=== PATIENT | female | born 1940 | race Caucasian/White ===

== ENCOUNTER 2021-12-12 09:11 | Day surgery (SDC) | payer MEDICARE, SELFPAY ==
[2021-12-07 13:42] VITALS: BMI 35.5
--- NOTE | 2021-12-09 08:45 | MHC.SHP ---
Pre-Procedural Eval Section A Date of Service: 12/09/21 The patient is an INPATIENT: No Changes since office visit: No Cold of Flu in the past 2 weeks, No New Medical Problems, No Changes in Medication and No Patient answered all questions The History & Physical has been completed within 30 days and I have reviewed it.: Yes Section B Chief Complaint: cataract left eye,open angle glaucoma Allergies: Allergies Allergy/AdvReac Type Severity Reaction Status Date / Time amlodipine [From [facility]] Allergy Tongue Verified 12/07/21 13:40 swelling lisinopril AdvReac Cough Verified 12/07/21 13:40 Plan Diagnosis/Plan: Unchanged I have reviewed the history and physical and performed a pertinent physical examination on my patient. No changes have occurred unless specified.
--- NOTE | 2021-12-09 09:47 | HO.ANESPROP2 ---
Documented by User: Fay Carlson NP 12/09/21 09:47 HPI - Anesthesia Eval Consult details Narrative: 81yo F for Left Cataract Extraction IOL Insertion and Left Traveculectomy PCP cleared No previous cataract on record [facility] Past Medical History Medical History Arthritis CAD (coronary artery disease) CHF (congestive heart failure) COPD (chronic obstructive pulmonary disease) GERD (gastroesophageal reflux disease) Glaucoma Hard of hearing HTN (hypertension) Hx of myocardial infarction Nocturnal hypoxia On beta jhony at home Osteopenia Overactive bladder Post-nasal drip Prediabetes Pulmonary nodules Surgical History Surgical History History of colon resection History of total right knee replacement Hx of cardiac catheterization Hx of colonoscopy Hx of hysterectomy Hx of right breast biopsy Hx of varicose vein ligation Social History Social History Household Members Other:: 2 Adult Sons Are you a primary careers counsellor to a significant other at home: No Do you presently have visiting nurse or other home services: No Patient Tobacco Use Status: Former Tobacco user Quit Date: ~ 40 yrs ago Tobacco use type: Cigarette Use of substances other than those prescribed or required for medical reasons: No Have you been hit, kicked, punched, or otherwise hurt by someone within the past year? If so, by whom?: No Are you DNR?: No Advance Directives: No Advance Directives Information Provided: No Advance Directives on File: No Recently lost weight without trying: No Eating poorly because of decreased appetite: No Nutrition Risks: No Nutritional Risk Meds Allergies Allergy/AdvReac Type Severity Reaction Status Date / Time amlodipine [From [facility]] Allergy Tongue Verified 12/07/21 13:40 swelling lisinopril AdvReac Cough Verified 12/07/21 13:40 Home Medications Medication Instructions Recorded Confirmed Last Taken Type aspirin 81 mg tablet,delayed 81 mg PO DAILY 12/07/21 12/07/21 12/12/21 History release atorvastatin 80 mg tablet 1 tab PO DAILY 12/07/21 12/07/21 12/12/21 History furosemide 40 mg tablet 40 mg PO DAILY 12/07/21 12/07/21 Unknown History isosorbide mononitrate 60 mg 1 tab PO DAILY 12/07/21 12/07/21 12/12/21 History tablet,extended release 24 hr latanoprost 0.005 % eye drops drp OPHTHALMIC (EYE) 12/07/21 Unknown History metoprolol tartrate 50 mg tablet 1 tab PO BID 12/07/21 12/07/21 12/12/21 History olmesartan 20 mg tablet 1 tab PO DAILY 12/07/21 12/07/21 12/12/21 History tiotropium 2.5 mcg-olodaterol 2.5 INHALATION DAILY 12/07/21 12/07/21 12/12/21 History mcg/actuation mist for inhalation (Stiolto Respimat) Exam Exam Date and Time: December 09, 2021 0947 Height,Weight and Vital Signs: Height 4 ft 11 in Weight 79.832 kg Assessment and Plan Assessment Anesthesia Assessment: Chart Reviewed Documented by User: Stephanie Dexter MD 12/12/21 10:51 [facility] Past Medical History Medical History Arthritis CAD (coronary artery disease) CHF (congestive heart failure) COPD (chronic obstructive pulmonary disease) GERD (gastroesophageal reflux disease) Glaucoma Hard of hearing HTN (hypertension) Hx of myocardial infarction Nocturnal hypoxia On beta jhony at home Osteopenia Overactive bladder Post-nasal drip Prediabetes Pulmonary nodules Surgical History Surgical History History of colon resection History of total right knee replacement Hx of cardiac catheterization Hx of colonoscopy Hx of hysterectomy Hx of right breast biopsy Hx of varicose vein ligation History of Problems with Anesthesia: No Social History Social History Household Members Other:: 2 Adult Sons Are you a primary careers counsellor to a significant other at home: No Do you presently have visiting nurse or other home services: No Patient Tobacco Use Status: Former Tobacco user Quit Date: ~ 40 yrs ago Tobacco use type: Cigarette Use of substances other than those prescribed or required for medical reasons: No Have you been hit, kicked, punched, or otherwise hurt by someone within the past year? If so, by whom?: No Are you DNR?: No Advance Directives: No Advance Directives Information Provided: No Advance Directives on File: No Recently lost weight without trying: No Eating poorly because of decreased appetite: No Nutrition Risks: No Nutritional Risk Meds Allergies Allergy/AdvReac Type Severity Reaction Status Date / Time amlodipine [From [facility]] Allergy Tongue Verified 12/07/21 13:40 swelling lisinopril AdvReac Cough Verified 12/07/21 13:40 Home Medications Medication Instructions Recorded Confirmed Last Taken Type aspirin 81 mg tablet,delayed 81 mg PO DAILY 12/07/21 12/07/21 12/12/21 History release atorvastatin 80 mg tablet 1 tab PO DAILY 12/07/21 12/07/21 12/12/21 History furosemide 40 mg tablet 40 mg PO DAILY 12/07/21 12/07/21 Unknown History isosorbide mononitrate 60 mg 1 tab PO DAILY 12/07/21 12/07/21 12/12/21 History tablet,extended release 24 hr latanoprost 0.005 % eye drops drp OPHTHALMIC (EYE) 12/07/21 Unknown History metoprolol tartrate 50 mg tablet 1 tab PO BID 12/07/21 12/07/21 12/12/21 History olmesartan 20 mg tablet 1 tab PO DAILY 12/07/21 12/07/21 12/12/21 History tiotropium 2.5 mcg-olodaterol 2.5 INHALATION DAILY 12/07/21 12/07/21 12/12/21 History mcg/actuation mist for inhalation (Stiolto Respimat) Exam Airway Mallampati Class: II TM Dist: >3cm Neck ROM: Limited Denture: Upper Loose/Missing/Broken Teeth: Yes, Upper and Lower Heart: RRR Lungs: CTA Assessment and Plan Assessment Anesthesia Assessment: Anesthesia Plan Discussed Final Anesthetic Review History of Problems with Anesthesia: No NPO: Yes ASA Class: III Final Preanesthetic Review: Meds/Allgs Chart Reviewed, Consent Obtained/Reviewed and Anes Risks/Benef Reviewed Patient Risk: Intermediate Procedure Risk: Low Anesthetic Plan Anesthetic Plan: MAC: Disposition: Standard PACU
[2021-12-12 10:38] VITALS: BP 158/55; PULSE 47; RESP 16; TEMP 36.6; O2SAT 94
[2021-12-12] MEDS: Tetracaine HCl/PF 0.5% Oph Sol 4 ML DROPS 1 DROP EYE-LEFT (10:52)
[2021-12-12] MEDS: Lactated Ringers 500 ML 50 ML IV (10:56)
[2021-12-12] MEDS: Tropicamide 1 % Ophth Sol 3 ML BTL 1 DROP EYE-LEFT ×3 (10:56→11:07)
[2021-12-12] MEDS: Phenylephrine HCL 2.5% Oph SoL 2 ML BOTTLE 1 DROP EYE-LEFT ×3 (11:00→11:10)
--- NOTE | 2021-12-12 11:45 | HO.PNOPHT ---
Ophthalmology Procedure Procedure Date of Service: 12/12/21 Ophthalmology Viscoelastic: Healon Duet Dual Pack Pro Ophthalmology Lenses: TECSHAYNA [id number] (20) Procedure Notes: PREOPERATIVE DIAGNOSIS: Decreased visual acuity left eye secondary to cataract and glaucoma POSTOPERATIVE DIAGNOSIS: Same PROCEDURE: Left cataract extraction with intraocular lens insertion and trabeculectomy, left eye SURGEON: Seferino Griffiths M.D. ANESTHESIA: Topical/MAC ESTIMATED BLOOD LOSS: None COMPLICATIONS: None After obtaining informed consent, the patient was brought to the operating room suite and placed in the supine position. After adequate sedation per anesthesia, topical drops of Tetracaine were given to the left eye. The eye was then prepped and draped in the usual sterile fashion. The operating room microscope was then positioned over the left eye and a lid speculum placed. 2% Lidocaine was instilled subconjunctivally. After awaiting 30 seconds, a paracentesis was created superiorly. Hemostasis was then achieved using wet field cautery. Mitomycin .4mg/ml was then placed in the conjunctival pocket and held in place for two minutes. The subconjunctival pocket was then irrigated copiously with 20 mls of BSS. Paracentesis was then created. Viscoelastic was then instilled into the anterior chamber. A crescent blade was then utilized to create a partial thickness sclera wound followed by advancement to clear cornea with the crescent blade. A keratome was then utilized to enter the anterior chamber. Capsulotomy forceps were then utilized to create a continuous circular tear capsulotomy. Hydrodissection and hydrodelineation were carried out until adequate mobilization of the nucleus occurred. Phacoemulsification was utilized to remove the dense central nucleus followed by removal of remnant cortical material utilizing the automated aspiration irrigation unit. Viscoelastic was then instilled into the posterior capsular bag followed by placement of a posterior chamber intraocular lens. Attention was then directed to create a trabeculectomy. A Marjan punch was then utilized to create the trabeculectomy. The residual Viscoelastic was then removed utilizing the automated IA machine. The egress of aqueous was evaluated and found to be appropriate. The conjunctiva was then closed with a 9-0 vicryl suture. BSS was then instilled into the anterior chamber creating a superior bleb, without obvious leakage. Intracameral injection of Vigamox 0.3%, 0.1 ml and subtenon injection of Kenalog-40 0.2 ml was given followed by an atropine drop. The patient tolerated the procedure well and will be followed up in the a.m.
[2021-12-12 12:29] VITALS: BP 153/78; PULSE 56; RESP 14; TEMP 36.5; O2SAT 98
[2021-12-12] MEDS: Acetaminophen 325 MG TABLET 650 MG PO (12:37)
[2021-12-12 12:44] VITALS: BP 143/68; PULSE 57; RESP 18; TEMP 36.5; O2SAT 98
== END 2021-12-12 12:57 | disposition home or self-care (01) ==
PROVIDERS: PCP Internal Medicine; Visit Provider Ophthalmology
PROC: (CPT 66985; principal; 2021-12-12 12:00)
PROC: (CPT 66170; 2021-12-12 12:00)
DX: H25.12 Age-related nuclear cataract, left eye (principal); H40.1131 Primary open-angle glaucoma, bilateral, mild stage; Z83.511 Family history of glaucoma; H54.7 Unspecified visual loss; I50.9 Heart failure, unspecified; I11.0 Hypertensive heart disease with heart failure; I25.2 Old myocardial infarction; J44.9 Chronic obstructive pulmonary disease, unspecified; M19.90 Unspecified osteoarthritis, unspecified site; R73.03 Prediabetes; Z79.51 Long term (current) use of inhaled steroids; Z99.81 Dependence on supplemental oxygen; Z79.899 Other long term (current) drug therapy; Z88.8 Allergy status to other drugs, medicaments and biological substances; Z96.651 Presence of right artificial knee joint; Z87.891 Personal history of nicotine dependence
CPT/HCPCS: 66984; 66170; J2250; J3010; J3300; J7315; V2632

== ENCOUNTER 2022-05-29 10:43 | Day surgery (SDC) | payer MEDICARE, SELFPAY ==
[2022-05-23 13:45] VITALS: BMI 35.3
[2022-05-29] MEDS: Tetracaine HCl/PF 0.5% Oph Sol 4 ML DROPS 1 DROP EYE-RIGHT (13:09)
[2022-05-29] MEDS: Cyclopentolate 1 % Ophth Sol 2 ML DRPBTL 1 DROP EYE-RIGHT ×3 (13:09→13:20)
[2022-05-29] MEDS: Tropicamide 1 % Ophth Sol 3 ML BTL 1 DROP EYE-RIGHT ×3 (13:09→13:20)
--- NOTE | 2022-05-29 13:13 | P.CONAN_ITS ---
HPI - Anesthesia Eval Consult details Narrative: Right eye cataract [facility] Past Medical History Medical History Arthritis CAD (coronary artery disease) CHF (congestive heart failure) COPD (chronic obstructive pulmonary disease) GERD (gastroesophageal reflux disease) Glaucoma Hard of hearing HTN (hypertension) Hx of myocardial infarction Nocturnal hypoxia On beta jhony at home Osteopenia Overactive bladder Post-nasal drip Prediabetes Pulmonary nodules Family History Family history of problems with anesthesia: No Surgical History Surgical History History of colon resection History of left cataract extraction History of total right knee replacement Hx of cardiac catheterization Hx of colonoscopy Hx of hysterectomy Hx of right breast biopsy Hx of varicose vein ligation History of Problems with Anesthesia: No Social History Social History Household Members Other:: 2 adult sons Are you a primary dialysis patient care technician to a significant other at home: No Do you presently have visiting nurse or other home services: No Patient Tobacco Use Status: Former Tobacco user Quit Date: age 41 Tobacco use type: Cigarette Use of substances other than those prescribed or required for medical reasons: No Are you DNR?: No Advance Directives: No Advance Directives Information Provided: Yes (brochure mailed) Advance Directives on File: No Recently lost weight without trying: No Eating poorly because of decreased appetite: No Nutrition Risks: Surgical patient >75years Meds Allergies Allergy/AdvReac Type Severity Reaction Status Date / Time amlodipine [From [facility]] Allergy Tongue Verified 12/07/21 13:40 swelling lisinopril AdvReac Cough Verified 12/07/21 13:40 Active Medications: Current Medications Povidone Iodine (Povidone Iodine 5 % Ophth Soln 30 Ml Bottle) 1 appl EYE-RIGHT PREOP PRN PRN Reason: Pre-Op Surgical Implant Prophy Home Medications Medication Instructions Recorded Confirmed Last Taken Type aspirin 81 mg tablet,delayed 81 mg PO DAILY 12/07/21 05/23/22 12/12/21 History release atorvastatin 80 mg tablet 1 tab PO DAILY 12/07/21 05/23/22 12/12/21 History furosemide 40 mg tablet 40 mg PO DAILY 12/07/21 05/23/22 Unknown History isosorbide mononitrate 60 mg 1 tab PO DAILY 12/07/21 05/23/22 12/12/21 History tablet,extended release 24 hr latanoprost 0.005 % eye drops 1 drp ophthalmic (eye) BEDTIME 12/07/21 05/23/22 Unknown History metoprolol tartrate 50 mg tablet 1 tab PO BID 12/07/21 05/23/22 12/12/21 History olmesartan 20 mg tablet 1 tab PO DAILY 12/07/21 05/23/22 12/12/21 History tiotropium 2.5 mcg-olodaterol 2.5 2 inh inhalation DAILY 12/07/21 05/23/22 12/12/21 History mcg/actuation mist for inhalation (Stiolto Respimat) albuterol sulfate 90 mcg/actuation 2 puff inhalation Q4-6H PRN 05/23/22 05/23/22 Unknown History aerosol inhaler (ProAir HFA) Wheezing Exam Exam Date and Time: May 29, 2022 1313 Height,Weight and Vital Signs: Height 4 ft 11 in Weight 79.379 kg Airway Mallampati Class: II TM Dist: >3cm Neck ROM: Full Denture: Upper Loose/Missing/Broken Teeth: Yes (upper denture, lower no teeth) Heart: [id number] Lungs: cta b/l Assessment and Plan Assessment Anesthesia Assessment: Anesthesia Plan Discussed and Chart Reviewed Final Anesthetic Review Family History of Problems with Anesthesia: No History of Problems with Anesthesia: No NPO: Yes ASA Class: III Final Preanesthetic Review: No Changes in Pt Med Stat, Meds/Allgs Chart Reviewed, Consent Obtained/Reviewed and Anes Risks/Benef Reviewed Patient Risk: Intermediate Procedure Risk: Low Assessment/Block/Sedation in SS: Assess/Block/Sedation-SS Anesthetic Plan Anesthetic Plan: MAC: and Agree w/ Assess. and Plan Disposition: Standard PACU
[2022-05-29] MEDS: Phenylephrine HCL 2.5% Oph SoL 2 ML BOTTLE 1 DROP EYE-RIGHT ×3 (13:20→13:30)
[2022-05-29 13:34] VITALS: BP 167/88; PULSE 72; RESP 20; TEMP 36.6; O2SAT 100
--- NOTE | 2022-05-29 13:39 | HO.PNOPHT ---
Ophthalmology Procedure Procedure Date of Service: 05/29/22 Ophthalmology Viscoelastic: Healjenna Duet Dual Pack Pro Ophthalmology Lenses: TECNIS [id number] (18.5) Procedure Notes: PREOPERATIVE DIAGNOSIS: Decreased visual acuity right eye secondary to cataract and glaucoma. POSTOPERATIVE DIAGNOSIS: Same PROCEDURE: Right cataract extraction with intraocular lens insertion and trabeculectomy, right eye SURGEON: Seferino Griffiths M.D. ANESTHESIA: Topical/MAC ESTIMATED BLOOD LOSS: None COMPLICATIONS: None After obtaining informed consent, the patient was brought to the operating room suite and placed in the supine position. After adequate sedation per anesthesia, topical drops of Tetracaine were given to the right eye. The eye was then prepped and draped in the usual sterile fashion. The operating room microscope was then positioned over the right eye and a lid speculum placed. 2% Lidocaine was instilled subconjunctivally. After awaiting 30 seconds, a paracentesis was created superiorly. Hemostasis was then achieved using wet field cautery. Mitomycin .4mg/ml was then placed in the conjunctival pocket and held in place for two minutes. The subconjunctival pocket was then irrigated copiously with 20 mls of BSS. Paracentesis was then created. Viscoelastic was then instilled into the anterior chamber. A crescent blade was then utilized to create a partial thickness sclera wound followed by advancement to clear cornea with the crescent blade. A keratome was then utilized to enter the anterior chamber. Capsulotomy forceps were then utilized to create a continuous circular tear capsulotomy. Hydrodissection and hydrodelineation were carried out until adequate mobilization of the nucleus occurred. Phacoemulsification was utilized to remove the dense central nucleus followed by removal of remnant cortical material utilizing the automated aspiration irrigation unit. Viscoelastic was then instilled into the posterior capsular bag followed by placement of a posterior chamber intraocular lens. Attention was then directed to create a trabeculectomy. A Marjan punch was then utilized to create the trabeculectomy. The residual Viscoelastic was then removed utilizing the automated IA machine. The egress of aqueous was evaluated and found to be appropriate. The conjunctiva was then closed with a 9-0 vicryl suture. BSS was then instilled into the anterior chamber creating a superior bleb, without obvious leakage. Intracameral injection of Vigamox 0.3%, 0.1 ml and subtenon injection of Kenalog-40 0.2 ml was given followed by an atropine drop. The patient tolerated the procedure well and will be followed up in the a.m.
--- NOTE | 2022-05-29 14:29 | P.HPSUR_ITS ---
Pre-Procedural Eval Section A Date of Service: 05/29/22 The patient is an INPATIENT: No Changes since office visit: No Cold of Flu in the past 2 weeks, No New Medical Problems, No Changes in Medication and No Patient answered all questions The History & Physical has been completed within 30 days and I have reviewed it.: Yes Section B Chief Complaint: Primary open-angle glaucoma, right eye,cataract Allergies: Allergies Allergy/AdvReac Type Severity Reaction Status Date / Time amlodipine [From [facility]] Allergy Tongue Verified 05/29/22 13:37 swelling lisinopril AdvReac Cough Verified 05/29/22 13:37 Plan Diagnosis/Plan: Unchanged I have reviewed the history and physical and performed a pertinent physical examination on my patient. No changes have occurred unless specified.
[2022-05-29] MEDS: Acetaminophen 325 MG TABLET 650 MG PO (14:36)
[2022-05-29 14:37] VITALS: BP 156/99; PULSE 60; RESP 16; TEMP 36.9; O2SAT 96
== END 2022-05-29 14:47 | disposition home or self-care (01) ==
PROVIDERS: Visit Provider Ophthalmology
PROC: (CPT 66170; principal; 2022-05-29 13:20)
PROC: (CPT 66985; 2022-05-29 13:20)
DX: H25.11 Age-related nuclear cataract, right eye (principal); H40.1112 Primary open-angle glaucoma, right eye, moderate stage
CPT/HCPCS: 66984; 66170; J2250; J3010; J3300; J7315; V2632